=== PATIENT | male | born 1985 | race American Indian/Alaskan Native ===

== ENCOUNTER 2017-11-30 18:59 | Emergency (ER) | payer SELFPAY ==
[2017-11-30 19:10] VITALS: BP 136/67
== END 2017-11-30 21:30 | disposition left against medical advice (07) ==
LOC: ED 18:59
DX: L98.9 Disorder of the skin and subcutaneous tissue, unspecified (principal); Z53.21 Procedure and treatment not carried out due to patient leaving prior to being seen by health care provider

== ENCOUNTER 2017-12-01 07:08 | Emergency (ER) | payer BC ==
[2017-12-01 07:22] VITALS: BP 119/73
[2017-12-01] MEDS ORDERED: BICILLIN L-A IM ONE (08:51)
--- NOTE | 2017-12-01 08:59 | Emergency Department Report ---
ED Rash HPI - HPI Chief Complaint: Skin Rash Stated Complaint: HAND PAIN Time Seen by Provider: 12/01/17 08:23 Duration: 2 Days Location: Upper Extremities Suspected Cause: Unknown Rash Symptoms: Yes Itching, No Facial Swelling, No Tongue/Oral Swelling, No Breathing Difficulties, No Choking Sensation, No Wheezing/Dyspnea, No Peeling, No Blistering, No Fever, No Lightheaded, No Malaise, No Myalgias Severity: mild Other History: This is a 32-year-old male nontoxic in appearance with no signs of distress presents to the ER with complaining of bilateral palm hand itching, rash, and redness x2 days. Patient denies any fever, chills, nausea, vomiting, chest pain, short of breath, headache or stiff neck. Patient denies any allergies or significant past medical history. ED Review of Systems ROS: Stated complaint: HAND PAIN Other details as noted in HPI Constitutional: denies: chills, fever Eyes: denies: eye pain, eye discharge, vision change ENT: denies: ear pain, throat pain Respiratory: denies: cough, shortness of breath, wheezing Cardiovascular: denies: chest pain, palpitations Endocrine: no symptoms reported Gastrointestinal: denies: abdominal pain, nausea, diarrhea Genitourinary: denies: urgency, dysuria Musculoskeletal: denies: back pain, joint swelling, arthralgia Skin: rash. denies: lesions Neurological: denies: headache, weakness, paresthesias Psychiatric: denies: anxiety, depression Hematological/Lymphatic: denies: easy bleeding, easy bruising ED Past Medical Hx - Past Medical History Previous Medical History?: No - Surgical History Additional Surgical History: Right ACL - Social History Smoking Status: Never Smoker Substance Use Type: None - Medications Home Medications: Home Medications Medication Instructions Recorded Confirmed Last Taken Type Prednisone 20 mg PO DAILY 11/30/17 11/30/17 Unknown History hydrOXYzine 10 mg PO Q6H PRN 11/30/17 11/30/17 Unknown History Permethrin 5% [Acticin 5% CREAM] 1 applicatio TP ONCE #1 tube 12/01/17 Unknown Rx Rash Exam - Exam General: Vital signs noted. No distress. Alert and acting appropriately. GENERAL: The patient is a well-developed, well-nourished in no apparent distress. Patient is alert and acting appropriately for age. Alert and oriented 3, no apparent distress, normal gait, atraumatic. HEENT: Head is normocephalic and atraumatic. PERRL, Extraocular muscles are intact. Pupils are equal, round, and reactive to light and accommodation. Nares appeared normal. Mouth is well hydrated and without lesions. Mucous membranes are moist. Posterior pharynx clear of any exudate or lesions. Mouth is well hydrated and without lesions. Tonsils not erythematous or swollen. Uvula midline. Tongue elevated. Mucous members are moist. Posterior pharynx clear, no exudate or lesions. Patent airways. NECK: Supple. No carotid bruits. No lymphadenopathy or thyromegaly.nontender. No meningitic signs are noted. LUNGS: Clear to auscultation. Non labor breathing. No intercostal retractions. Symmetrical with respiration, no wheezing, no rales, or crackles. HEART: Regular rate and rhythm without murmur, rubs or gallops. No reproducible. S1, S2 present, regular rate and rhythm without murmur, no rubs, no gallops. ABDOMEN: Soft, nontender, and nondistended. Positive bowel sounds. No hepatosplenomegaly was noted. No guarding or rebound tenderness, negative epigastric bruit. Negative psoas sign, negative vargas sign, negative McBurneys sign EXTREMITIES: Without any cyanosis, clubbing, rash, lesions or edema. Peripheral pulses intact. Capillary refill less than 2 seconds. Full range of motion bilaterally. NEUROLOGIC: Cranial nerves II through XII are grossly intact. Alert and oriented x 3. Normal gait. Symmetrical strength and sensation. Reflexes 2+ throughout. Cerebellar testing normal. GCS score of 15. PSYCHIATRIC: Normal affect with no suicidal or homicidal ideations. HEENT: No Periorbital Edema, No Conjuctival Injection, No Chemosis, No Perioral Edema, No Tongue Edema, No Uvular Edema, No Compromised Airway, No Drooling Lungs: Yes Good Air Exchange (Normal Breath Sounds), No Wheezes, No Ronchi, No Stridor, No Cough, No Labored Respirations, No Retractions, No Use of Accessory Muscles, No Other Abnormal Lung Sounds Heart: Yes Regular, No Murmur Skin: Yes Maculopapular Rash (to bilateral palms and between fingers), No Urticarial Rash, No Morbilliform rash, No Bulla(e), No Excoriations, No Weeping , No Tenderness, No Erythema, No Edema, No Encrustations, No Other Other: Positive: Abdomen Normal, Neurologic Normal, Musculoskeletal Normal ED Course Vital Signs 12/01/17 07:21 Temperature 98.5 F Pulse Rate 47 L Respiratory 16 Rate Blood Pressure 119/73 O2 Sat by Pulse 98 Oximetry - Reevaluation(s) Reevaluation #1: 12/01/17 08:58 Patient is speaking in full sentences with no signs of distress noted. ED Medical Decision Making - Medical Decision Making 32-year-old male that presents with scabies. Upon examination symptoms are also persistent with syphilis. Due to this I ordered RPR to be obtained. I did treat patient. I did treat patient empirically with 2.4 penicillin G IM. Patient was instructed to return in about 1-2 days for results of RPR. Patient was referred to Follow-up with a primary care doctor in 3-5 days or if symptoms worsen and continue return to emergency room as soon as possible. At time of discharge, the patient does not seem toxic or ill in appearance. No acute signs of distress noted. Patient agrees to discharge treatment plan of care. No further questions noted by the patient. - Differential Diagnosis scabies versus syphilis Critical care attestation.: If time is entered above; I have spent that time in minutes in the direct care of this critically ill patient, excluding procedure time. ED Disposition Clinical Impression: Scabies, Rash of hands Disposition: DC-01 TO HOME OR SELFCARE Is pt being admited?: No Does the pt Need Aspirin: No Condition: Stable Instructions: Scabies (ED), Syphilis (ED) Additional Instructions: Follow-up with a primary care doctor in 3-5 days or if symptoms worsen and continue return to emergency room as soon as possible. Return to the ED for PRP results in 1-2 days Prescriptions: Permethrin 5% [Acticin 5% CREAM] 1 applicatio TP ONCE #1 tube Referrals: PRIMARY CAREMD [Primary Care Provider] - 3-5 Days MICHELE KING MD [Staff Physician] - 3-5 Days [facility] [Outside] - 3-5 Days [facility] [Outside] - 3-5 Days Forms: Work/School Release Form(ED)
== END 2017-12-01 09:20 | disposition home or self-care (01) ==
LOC: ED 07:08
DX: B86 Scabies (principal)
CPT/HCPCS: 36415; 86592; 96372; 99283; J0561

== ENCOUNTER 2017-12-04 00:59 | Emergency (ER) | payer BC ==
--- NOTE | 2017-12-04 08:32 | Emergency Department Report ---
ED Rash HPI - HPI Chief Complaint: Skin Rash Stated Complaint: HANDS Time Seen by Provider: 12/04/17 08:14 Duration: 4 Days Location: Upper Extremities (bilateral hand) Suspected Cause: Unknown Rash Symptoms: Yes Itching (painful joints to hand), Yes Blistering (both hands with redness the palm and rash to the back of both hands and fingers), No Facial Swelling, No Breathing Difficulties, No Choking Sensation, No Wheezing/ Dyspnea, No Peeling, No Fever, No Lightheaded, No Malaise, No Myalgias Severity: moderate (pain is 4/10 and achy.) Other History: This is a 32-year-old male here on 829 and was treated for scabies with permethrin cream and also was given penicillin IM to treat syphilis. He had RPR done which was nonreactive. Patient says that he has been taking medication but redness and bumps to his hand is getting worse and his finger joints are swollen. Patient has not taken any new medication in and it is environmental except for was prescribed for him topically and for itching. Denies any respiratory symptoms. Denies any fever or chills. Denies any history of syphilis or any nausea or vomiting. Denies any other bumps and the other area except for his palms, fingers and dorsum of hand. He said he has some itching in but mostly his joints are stiff and hands and fingers are swollen. Reported redness the palm. ED Review of Systems ROS: Stated complaint: HANDS Other details as noted in HPI Constitutional: denies: chills, fever Eyes: denies: eye pain, eye discharge, vision change ENT: denies: ear pain, throat pain, congestion Respiratory: denies: cough, shortness of breath, SOB with exertion, SOB at rest , stridor, wheezing Cardiovascular: denies: chest pain, palpitations, edema, syncope Gastrointestinal: denies: abdominal pain, nausea, vomiting, diarrhea Genitourinary: denies: hematuria, discharge Musculoskeletal: joint swelling, arthralgia. denies: back pain, myalgia Skin: rash, pruritus. denies: lesions Neurological: denies: headache, weakness, numbness, paresthesias, abnormal gait , vertigo Hematological/Lymphatic: swollen glands. denies: easy bruising ED Past Medical Hx - Past Medical History Previous Medical History?: No - Surgical History Past Surgical History?: Yes Additional Surgical History: Right ACL - Family History Family history: hypertension - Social History Smoking Status: Never Smoker Substance Use Type: None - Medications Home Medications: Home Medications Medication Instructions Recorded Confirmed Last Taken Type Prednisone 20 mg PO DAILY 11/30/17 11/30/17 Unknown History hydrOXYzine 10 mg PO Q6H PRN 11/30/17 11/30/17 Unknown History Permethrin 5% [Acticin 5% CREAM] 1 applicatio TP ONCE #1 tube 12/01/17 Unknown Rx Clindamycin [Clindamycin CAP] 300 mg PO Q8H 10 Days #30 cap 12/04/17 Unknown Rx Ibuprofen [Motrin] 600 mg PO Q8H PRN #12 tablet 12/04/17 Unknown Rx methylPREDNISolone [Medrol Dose 4 mg PO DAILY #1 tab.ds.pk 12/04/17 Unknown Rx Efra] Rash Exam - Exam General: Vital signs noted. No distress. Alert and acting appropriately. This is a 32-year-old male well-nourished well-developed in no acute distress. HEENT: No Periorbital Edema, No Conjuctival Injection, No Chemosis, No Perioral Edema, No Tongue Edema, No Uvular Edema, No Compromised Airway, No Drooling Lungs: Yes Good Air Exchange, No Wheezes, No Ronchi, No Stridor, No Cough, No Labored Respirations, No Retractions, No Use of Accessory Muscles, No Other Abnormal Lung Sounds Heart: Yes Regular (bradycardic at 58 bpm which is normal for patient), No Murmur Skin: Yes Maculopapular Rash (2 dorsum of hands and fingers.), Yes Tenderness ( DIP and PIP, MIP joints), Yes Erythema (the palms of hand with swelling to fingers of both hands and also both hands.), Yes Edema, Yes Other (patient has full range of motion to his fingers easily able to open his fingers and spread them apart but he said when he tries to make a fist it hurts that his joints to his fingers), No Urticarial Rash, No Morbilliform rash, No Bulla(e), No Excoriations, No Weeping, No Encrustations Other: Positive: Abdomen Normal, Neurologic Normal (alert and oriented 3, GCS of 15, speech is clear and fluid. normal gait. No neurovascular compromise and no motor or sensory deficit), Musculoskeletal Normal (normal except for both hands with rash, redness, swelling and joints the fingers are painful.) ED Course Vital Signs 12/04/17 12/04/17 12/04/17 01:14 01:22 05:36 Temperature 98.6 F 98.4 F Pulse Rate 58 L 56 L 42 L Respiratory 14 17 Rate Blood Pressure 133/71 133/71 138/73 O2 Sat by Pulse 98 99 100 Oximetry - Reevaluation(s) Reevaluation #1: 12/04/17 08:48 Patient given Decadron 10 mg IM and clindamycin 600 mg to treat vasculitis of both hands. ED Medical Decision Making - Medical Decision Making This is a 32-year-old male that has worsening rash, redness swelling and painful joints to finger over the last 4 days. He was treated here on 2017 by provider Dwayne Leigh and was given permethrin cream for scabies and hydroxyzine for itch . RPR was done and nonreactive. Chart reviewed and patient was referred to multiple outpatient primary care physicians. Patient said he is not getting better and his hand is more swollen and getting worse. I saw and examined patient and his physical exam is normal except he has maculopapular rash to both hands mostly on the dorsum of his hand including fingers, he has erythema, nonblanching areas to his palm on both hands. He is able to open and close is hands but he said the joints of fingers on both hands are painful and feels sore. He reports minimal itching. There is no scabies type rash noted to webspaces rashes mostly on his dorsum of his finger and thumb on the palmar side. No drainage noted. Minimal tenderness to palpate. He is able to use his thumb and touch all his fingers and able to spread all his fingers without any difficulties. He said he only has pain when he tries to make a fist to both hands. Rash and swelling redness is localized to both hands and fingers otherwise his physical exam is stable. Patient was given Decadron 10 mg IM, Motrin 800 mg by mouth for pain and clindamycin 600 mg when necessary emergency room. Patient is stable and I discussed with him that he needs to follow up with a publisher assistant which he does have access to. He said that he will and I also told him that he needs to go to her primary care physician to manage any primary care problems and to get well patient visits and he voiced understanding discharged home in stable condition, vital signs are stable. Patient given prescription for clindamycin, Motrin and Medrol Dosepak. Critical care attestation.: If time is entered above; I have spent that time in minutes in the direct care of this critically ill patient, excluding procedure time. ED Disposition Clinical Impression: Acute skin eruption of discoloration, elevations, blisters, Vasculitis limited to skin, Pain in both hands Disposition: - TO HOME OR SELFCARE Is pt being admited?: No Does the pt Need Aspirin: No Condition: Stable Instructions: Acute Rash (ED), Hand Hygiene (ED), Arthralgia (ED) Additional Instructions: Your syphilis test is negative Please follow-up with Dr. gilliam publisher assistant in 3 days call to schedule an appointment Take antibiotic and steroids as prescribed Also see referral to Dr. Carlson who is a internal medicine doctor you need to have well patient physical exam Increase your fluid intake Resting hands for at least 3-4 days If your condition worsens, return to the emergency room otherwise the best place to go is the publisher assistant Referrals: SELINA CARLSON JR, MD [Staff Physician] - 3-5 Days MICHELE VILLANUEVA MD [Staff Physician] - 3-5 Days ORA GILLIAM MD [Staff Physician] - 3-5 Days PRIMARY CARE, [Primary Care Provider] - 3-5 Days Forms: Work/School Release Form(ED)
[2017-12-04] MEDS ORDERED: DECADRON IM STA (08:34)
[2017-12-04] MEDS ORDERED: CLEOCIN PO ONE ×2 (08:36→09:00)
[2017-12-04 09:16] VITALS: BP 128/70
== END 2017-12-04 09:14 | disposition home or self-care (01) ==
LOC: ED 00:59
DX: L95.9 Vasculitis limited to the skin, unspecified (principal); M79.642 Pain in left hand; M79.641 Pain in right hand; R21 Rash and other nonspecific skin eruption
CPT/HCPCS: 96372; 99282; J1100

== ENCOUNTER 2020-09-19 21:24 | Emergency (ER) | payer BC ==
[2020-09-19 21:45] VITALS: BP 95/68
[2020-09-19] MEDS ORDERED: TETANUS,DIPH,PERTUSS(ACELL) VACCINE 0.5 ML SYRINGE IM ONE (22:29)
[2020-09-19] MEDS ORDERED: IBUPROFEN 600 MG TAB PO ONE (22:29)
--- NOTE | 2020-09-19 22:44 | Emergency Department Report ---
ED Head Trauma HPI - General Chief complaint: Laceration/Recheck/Suture Stated complaint: LACERATION TO HEAD Source: patient Mode of arrival: Ambulatory Limitations: No Limitations - History of Present Illness Initial comments: Patient is a 35-year-old -[place] male with no past medical history presents to the ED with complaint of acute onset painful bleeding parietal scalp laceration after he accidentally bumped his head against a pole at work, the age of which was sharp and which ended up cutting his parietal scalp about 3 hours ago. Patient states that the bleeding is well controlled at this time. Patient states that he is not up-to-date with his tetanus vaccinations. Patient denies headache, loss of consciousness, dizziness, lightheadedness, change in vision, nausea, vomiting, neck pain, change in speech, fall or seizures. MD Complaint: head injury (parietal scalp laceration), head pain, other (hit head against pole at work) -: Sudden, hour(s) (3) Mechanism of Injury: other (Accidentally hit head against pole , causing laceration) Location: parietal Loss of Consciousness: no Previous Trauma to this Area: No Place: work Radiation: none Severity: mild Severity scale (0 -10): 2 Quality: aching Consistency: constant Provoking factors: none known Other Injuries: none Associated Symptoms: denies other symptoms. denies: confusion, amnesia, repetitive questioning, vision changes, nausea, vomiting, vertigo, syncope, numbness, weakness, tingling, neck pain - Related Data Home Medications Medication Instructions Recorded Confirmed Last Taken Prednisone 20 mg PO DAILY 11/30/17 11/30/17 Unknown hydrOXYzine 10 mg PO Q6H PRN 11/30/17 11/30/17 Unknown Previous Rx's Medication Instructions Recorded Last Taken Type Permethrin 5% [Acticin 5% CREAM] 1 applicatio TP ONCE #1 tube 12/01/17 Unknown Rx Clindamycin [Clindamycin CAP] 300 mg PO Q8H 10 Days #30 cap 12/04/17 Unknown Rx Ibuprofen [Motrin] 600 mg PO Q8H PRN #12 tablet 12/04/17 Unknown Rx methylPREDNISolone [Medrol Dose 4 mg PO DAILY #1 tab.ds.pk 12/04/17 Unknown Rx Efra] Ibuprofen [Motrin] 600 mg PO Q8H PRN #24 tablet 09/19/20 Unknown Rx cephALEXin [Keflex] 500 mg PO Q12HR #20 cap 09/19/20 Unknown Rx Allergies/Adverse reactions: Allergies Allergy/AdvReac Type Severity Reaction Status Date / Time No Known Allergies Allergy Verified 12/01/17 07:21 ED Review of Systems ROS: Stated complaint: LACERATION TO HEAD Other details as noted in HPI Constitutional: denies: chills, fever Eyes: denies: eye pain, eye discharge, vision change ENT: denies: ear pain, throat pain Respiratory: denies: cough, shortness of breath, wheezing Cardiovascular: denies: chest pain, palpitations Endocrine: no symptoms reported Gastrointestinal: denies: abdominal pain, nausea, vomiting, diarrhea Genitourinary: denies: urgency, dysuria Musculoskeletal: denies: back pain, joint swelling, arthralgia Skin: other (Bleeding parietal scalp laceration). denies: rash, lesions Neurological: denies: headache, weakness, paresthesias Psychiatric: denies: anxiety, depression Hematological/Lymphatic: denies: easy bleeding, easy bruising ED Past Medical Hx - Past Medical History Previous Medical History?: No - Surgical History Additional Surgical History: Right ACL - Social History Smoking Status: Never Smoker - Medications Home Medications: Home Medications Medication Instructions Recorded Confirmed Last Taken Type Prednisone 20 mg PO DAILY 11/30/17 11/30/17 Unknown History hydrOXYzine 10 mg PO Q6H PRN 11/30/17 11/30/17 Unknown History Permethrin 5% [Acticin 5% CREAM] 1 applicatio TP ONCE #1 tube 12/01/17 Unknown Rx Clindamycin [Clindamycin CAP] 300 mg PO Q8H 10 Days #30 cap 12/04/17 Unknown Rx Ibuprofen [Motrin] 600 mg PO Q8H PRN #12 tablet 12/04/17 Unknown Rx methylPREDNISolone [Medrol Dose 4 mg PO DAILY #1 tab.ds.pk 12/04/17 Unknown Rx Efra] Ibuprofen [Motrin] 600 mg PO Q8H PRN #24 tablet 09/19/20 Unknown Rx cephALEXin [Keflex] 500 mg PO Q12HR #20 cap 09/19/20 Unknown Rx ED Physical Exam - General Limitations: No Limitations General appearance: alert, in no apparent distress - Head Head exam: Present: other (Bleeding 5 cm parietal scalp laceration) - Eye Eye exam: Present: normal appearance, PERRL, EOMI Pupils: Present: normal accommodation - ENT ENT exam: Present: normal exam, normal orophraynx, mucous membranes moist, TM's normal bilaterally, normal external ear exam - Neck Neck exam: Present: normal inspection, full ROM - Respiratory Respiratory exam: Present: normal lung sounds bilaterally. Absent: respiratory distress, wheezes, rales, rhonchi, chest wall tenderness, accessory muscle use, decreased breath sounds, prolonged expiratory - Cardiovascular Cardiovascular Exam: Present: regular rate, normal rhythm, normal heart sounds. Absent: systolic murmur, diastolic murmur, rubs, gallop - GI/Abdominal GI/Abdominal exam: Present: soft, normal bowel sounds. Absent: tenderness, guarding, rebound, hyperactive bowel sounds, hypoactive bowel sounds, organomegaly - Extremities Exam Extremities exam: Present: normal inspection, full ROM, normal capillary refill - Back Exam Back exam: Present: normal inspection, full ROM. Absent: tenderness, CVA tenderness (R), CVA tenderness (L), muscle spasm, paraspinal tenderness, vertebral tenderness - Neurological Exam Neurological exam: Present: alert, oriented X3, CN II-XII intact, normal gait, reflexes normal - Psychiatric Psychiatric exam: Present: normal affect, normal mood - Skin Skin exam: Present: warm, dry, intact, normal color, other (Bleeding 5 cm laceration on frontal parietal scalp). Absent: rash ED Course Vital Signs 09/19/20 21:39 Temperature 98.0 F Pulse Rate 56 L Respiratory 16 Rate Blood Pressure 95/68 O2 Sat by Pulse 100 Oximetry - Laceration /Wound Repair Parietal Wound Location: head (Frontal parietal scalp laceration) Wound Length (cm): 5 Wound's Depth, Shape: superficial, linear Wound Explored: contaminated Irrigated w/ Saline (ccs): 200 Betadine Prep?: No Wound Debrided: extensive Wound Repaired With: Steri-strips (Mariposa) Number of Sutures: 9 Layer Closure?: No Sterile Dressing Applied?: No Progress: The frontal parietal scalp laceration wound was cleaned thoroughly with normal saline. The wound was then approximated and closed with mariposa. Patient tolerated the procedure well. The wound was then dressed appropriately with 4 x 4 gauze and Kerlix. - Medical Decision Making This is a 35-year-old -[place] male with no past medical history presents to the ED with complaint of acute onset painful bleeding parietal scalp laceration after he accidentally bumped his head against a pole at work, the age of which was sharp and which ended up cutting his parietal scalp about 3 hours ago. Patient states that the bleeding is well controlled at this time. Patient states that he is not up-to-date with his tetanus vaccinations. In the ED, patient is alert and oriented x3 and is not in any distress with normal vital signs. The patient received booster tetanus vaccination in the ED. The frontal parietal scalp laceration wound was cleaned thoroughly and the wound was stapled. Patient tolerated the procedure well. The wound was then dressed appropriately and the patient was discharged home on pain medications and prophylactic antibiotics and was advised to follow-up with his primary care physician in 7 to 10 days for reevaluation or return to the ED immediately if symptoms get worse. Patient was also advised return to the ED in 8 to 10 days. Mariposa removal. - Differential Diagnosis Scalp laceration; puncture wound; head injury - Core Measures AMI Core Measures Followed: No Measure Exclusions: not indicated - NEXUS Criteria Focal neurological deficit present: No Midline spinal tenderness present: No Altered level of consciousness: No Intoxication present: No Distracting injury present: No NEXUS results: C-Spine can be cleared clinically by these results. Imaging is not required. Critical care attestation.: If time is entered above; I have spent that time in minutes in the direct care of this critically ill patient, excluding procedure time. ED Disposition Clinical Impression: Contusion of scalp Qualifiers: Encounter type: initial encounter Qualified Code(s): S00.03XA - Contusion of scalp, initial encounter Laceration of scalp Qualifiers: Encounter type: initial encounter Qualified Code(s): S01.01XA - Laceration without foreign body of scalp, initial encounter Disposition: DC-01 TO HOME OR SELFCARE Is pt being admited?: No Does the pt Need Aspirin: No Condition: Stable Instructions: Contusion, [id number], Laceration Care, Adult, [id number], Sutured Wound Care, [id number] Additional Instructions: Take medication with food, drink plenty of fluids and follow-up with your primary care physician in 7 to 10 days for reevaluation. Return to the ED immediately if symptoms get worse. Otherwise return to the ED in 8 to 10 days for mariposa removal. Prescriptions: cephALEXin [Keflex] 500 mg PO Q12HR #20 cap Ibuprofen [Motrin] 600 mg PO Q8H PRN #24 tablet PRN Reason: Pain Referrals: [facility] [Provider Group] - 7-10 days Time of Disposition: 22:49 Print Language: CITIZEN OF [place]
== END 2020-09-19 23:10 | disposition home or self-care (01) ==
LOC: ED 21:24
DX: S01.01XA Laceration without foreign body of scalp, initial encounter (principal); Z98.890 Other specified postprocedural states; Z79.1 Long term (current) use of non-steroidal anti-inflammatories (NSAID); Z79.2 Long term (current) use of antibiotics; Z79.899 Other long term (current) drug therapy; W22.8XXA Striking against or struck by other objects, initial encounter; Y93.89 Activity, other specified; Y92.89 Other specified places as the place of occurrence of the external cause; Y99.0 Civilian activity done for income or pay
CPT/HCPCS: 90471; 90715; 99282

== ENCOUNTER 2020-09-29 07:12 | Emergency (ER) | payer BC ==
[2020-09-29 08:16] VITALS: BP 142/63
--- NOTE | 2020-09-29 08:16 | Emergency Department Report ---
Suture/Staple Removal - HPI Chief Complaint: Laceration/Recheck/Suture Stated Complaint: STAPLE REMOVAL Time Seen by Provider: 09/29/20 07:48 When Sutures or Lata Placed: 8-10 Days Ago Wound Location: front scalp ED Review of Systems ROS: Stated complaint: STAPLE REMOVAL Other details as noted in HPI Comment: All other systems reviewed and negative Constitutional: denies: chills, fever Eyes: denies: eye pain, eye discharge, vision change ENT: denies: ear pain, throat pain Respiratory: denies: cough, shortness of breath, wheezing Cardiovascular: denies: chest pain, palpitations Endocrine: no symptoms reported Gastrointestinal: denies: abdominal pain, nausea, diarrhea Genitourinary: denies: urgency, dysuria Musculoskeletal: denies: back pain, joint swelling, arthralgia Skin: denies: rash, lesions Neurological: denies: headache, weakness, paresthesias Psychiatric: denies: anxiety, depression Hematological/Lymphatic: denies: easy bleeding, easy bruising ED Past Medical Hx - Past Medical History Previous Medical History?: No - Surgical History Past Surgical History?: Yes Additional Surgical History: Right ACL - Social History Smoking Status: Never Smoker - Medications Home Medications: Home Medications Medication Instructions Recorded Confirmed Last Taken Type Prednisone 20 mg PO DAILY 11/30/17 11/30/17 Unknown History hydrOXYzine 10 mg PO Q6H PRN 11/30/17 11/30/17 Unknown History Permethrin 5% [Acticin 5% CREAM] 1 applicatio TP ONCE #1 tube 12/01/17 Unknown Rx Clindamycin [Clindamycin CAP] 300 mg PO Q8H 10 Days #30 cap 12/04/17 Unknown Rx Ibuprofen [Motrin] 600 mg PO Q8H PRN #12 tablet 12/04/17 Unknown Rx methylPREDNISolone [Medrol Dose 4 mg PO DAILY #1 tab.ds.pk 12/04/17 Unknown Rx Efra] Ibuprofen [Motrin] 600 mg PO Q8H PRN #24 tablet 09/19/20 Unknown Rx cephALEXin [Keflex] 500 mg PO Q12HR #20 cap 09/19/20 Unknown Rx Suture Removal Exam - Exam General: Vital signs noted. No distress. Alert and acting appropriately. Wound: No Pathologic Erythema, No Tenderness, No Drainage, No Pus, No Wound Dehiscence Other Systems: All other systems reviewed and are unremarkable. ED Course Vital Signs 09/29/20 07:28 Temperature 98.3 F Pulse Rate 56 L Respiratory 14 Rate Blood Pressure 142/63 O2 Sat by Pulse 98 Oximetry - Reevaluation(s) Reevaluation #1: 09/29/20 08:17 Patient is speaking in full sentences with no signs of distress noted. ED Recheck MDM - Medical Decision Making This is a 32-year-old male that presents with state removal. She is stable and was examined by me. Total of 9 lata has been removed and patient tolerated well. No signs of wound dehiscence, drainage, or cellulitis. Patient was referred to Follow-up with a primary care doctor in 3-5 days or if symptoms worsen and continue return to emergency room as soon as possible. At time of discharge, the patient does not seem toxic or ill in appearance. No acute signs of distress noted. Patient agrees to discharge treatment plan of care. No further questions noted by the patient. Critical care attestation.: If time is entered above; I have spent that time in minutes in the direct care of this critically ill patient, excluding procedure time. ED Disposition Clinical Impression: Removal of lata Disposition: DC-01 TO HOME OR SELFCARE Is pt being admited?: No Does the pt Need Aspirin: No Condition: Stable Additional Instructions: Follow-up with a primary care doctor in 3-5 days or if symptoms worsen and continue return to emergency room as soon as possible. Referrals: KIMBERLY DICKEY MD [Primary Care Provider] - 3-5 Days DANIEL MIRANDA MD [Staff Physician] - 3-5 Days Time of Disposition: 08:18
== END 2020-09-29 08:40 | disposition home or self-care (01) ==
LOC: ED 07:12
DX: S01.01XD Laceration without foreign body of scalp, subsequent encounter (principal); X58.XXXD Exposure to other specified factors, subsequent encounter